=== PATIENT | male | born 1990 | race Caucasian/White ===

== ENCOUNTER 2018-08-21 20:40 | Emergency (ER) | payer MEDICAID, OTHER ==
[2018-08-21] MEDS: HYDROCODONE/APAP (5/325) TAB PO (22:05)
== END 2018-08-21 23:35 | disposition home or self-care (01) ==
LOC: FTE 20:40
DX: S90.31XA Contusion of right foot, initial encounter (principal); S60.222A Contusion of left hand, initial encounter; V49.40XA Driver injured in collision with unspecified motor vehicles in traffic accident, initial encounter
CPT/HCPCS: 73130; 73130-LT; 73630; 99284-25